=== PATIENT | male | born 1995 | race Caucasian/White ===

== ENCOUNTER 2017-03-26 11:20 | Emergency (ER) | payer MEDICAID, SELFPAY | END 2017-03-26 12:10 | disposition home or self-care (01) | PROVIDERS: Emergency Provider Nurse Practitioner; Visit Provider Nurse Practitioner | DX: R05 Cough (principal) | CPT/HCPCS: 87804; 99201 ==

== ENCOUNTER 2017-04-28 17:54 | Emergency (ER) | payer MEDICAID, SELFPAY ==
[2017-04-28 18:34] VITALS: BP 122/87; PULSE 122; RESP 20; TEMP 37.6; O2SAT 97; BMI 19.7
--- NOTE | 2017-04-28 20:09 | HMH.EDUTC ---
[facility] [place] Clinical Impression: Viral gastroenteritis Disposition: Home, Self-Care Condition on Discharge: Good Instructions: DI for Viral Gastroenteritis -- Adult Additional Instructions: * Monitor Temp. Seek treatment if fever develops. * Follow up immediately for new or worsening symptoms OR no noticeable improvement over the next 48 hours. * Increase fluids. Water, gatorade, powerade, juice OR pedialyte with limited formula/dairy in children. * No food is ok as long as you or your child is drinking. Once ready to eat, start bland. bananas, rice, applesauce, toast * Contagious until no diarrhea, vomiting, fever x 24 hours without medication * Avoid anti-diarrheals unless told otherwise. Best to let the virus run its course. Referrals: Provider,Referral, MD [Primary Care Provider] - (IMMEDIATELY for new or worsening symptoms OR no noticeable improvement over the next 48 hours.) Forms: Work/School Release Time of Disposition: 20:21 Medical Decision Making Vital Signs: 04/28/17 18:34 Temperature 99.6 F Temperature Source Temporal Artery Scan Pulse Rate [Right] 122 H Respiratory Rate 20 Blood Pressure [Right Arm] 122/87 Blood Pressure Mean [Right Arm] 98 Blood Pressure Source [Right Arm] Automatic Cuff Blood Pressure Position [Right Arm] Sitting 02 Sat by Pulse Oximetry 97 Oxygen Delivery Method Room Air - Jose Inquiry Pt receiving controlled substance: No [facility] [place] - General Stated complaint: Vomiting Time Seen by Provider: 04/28/17 20:09 Mode of Arrival: Ambulatory Source of Information: Patient Limitations: No Limitations Description of Symptoms (Recalled from Triage Doc. by RN): N/V/D BEGAN THIS AM HEENT Symptoms (Recalled from RN notes): No Resp Symptoms (Recalled from RN notes): No Skin Symptoms (Recalled from RN notes): No MS Symptoms (Recalled from RN notes): No Functional Status (Recalled from RN notes): N - History of Present Illness Provider Complaint: c/o N/V/D new this morning. Vomited last around 3pm. approx 4-6 times today. Diarrhea 6-10 times. Loose. brown. no treatment today. Tried ham and cheese sandwich for lunch and that is when vomiting started. Has been able to tolerate chicken noodle soup and water this afternoon. Minimal nausea since vomiting subsided. GF w/ same symptoms days ago. pt had to leave work and request excuse. - Related Data Home Medications Medication Instructions Recorded Confirmed No Known Home Medications [No 04/28/17 04/28/17 Known Home Medications] Allergies Allergy/AdvReac Type Severity Reaction Status Date / Time No Known Allergies Allergy Verified 04/28/17 18:38 - Worker's Comp Is this a Worker's Comp case?: No [facility] History I have reviewed the patient's past medical history: Yes (denies PMHx) Other Surgeries: Yes: No Previous Surgery - *Social History Smoking Status: Current every day smoker Tobacco Type: cigarettes Alcohol Intake: never - Psychiatric History Expresses thoughts of harming self/others: None Suicide Plan Description: No Plan ROS Obtained: Yes Systems reviewed as appropriate & no additional complaints - Constitutional Constitutional: Reports as per HPI, Denies body ache, Denies chills, Denies fatigue, Denies fever(s) - ENT Ears, Nose, Mouth, and Throat: Denies otalgia, Denies nasal congestion, Denies nasal discharge, Denies sore throat - Cardiovascular Cardiovascular: Denies chest pain, Denies irregular heart rhythm - Respiratory Respiratory: No cough, No dyspnea - Gastrointestinal Gastrointestingal: Reports: as per HPI. Denies: abdominal pain, coffee ground emesis, vomiting blood, bright red blood in stools, black, tarry stools - Genitourinary Male Genitourinary: Denies difficulty urinating, Denies urinary frequency, Denies urinary hesitancy, Denies urinary urgency, Denies other (urine odor or change in color) - Musculoskeletal Musculoskeletal: Denies back pain - Integumentary/Breasts
--- NOTE | 2017-04-28 20:17 | ED_ITS ---
[facility] [place] Clinical Impression: Viral gastroenteritis Disposition: Home, Self-Care Condition on Discharge: Good Instructions: DI for Viral Gastroenteritis -- Adult Additional Instructions: * Monitor Temp. Seek treatment if fever develops. * Follow up immediately for new or worsening symptoms OR no noticeable improvement over the next 48 hours. * Increase fluids. Water, gatorade, powerade, juice OR pedialyte with limited formula/dairy in children. * No food is ok as long as you or your child is drinking. Once ready to eat, start bland. bananas, rice, applesauce, toast * Contagious until no diarrhea, vomiting, fever x 24 hours without medication * Avoid anti-diarrheals unless told otherwise. Best to let the virus run its course. Referrals: Provider,Referral, MD [Primary Care Provider] - (IMMEDIATELY for new or worsening symptoms OR no noticeable improvement over the next 48 hours.) Forms: Work/School Release Time of Disposition: 20:21 Medical Decision Making Vital Signs: 04/28/17 18:34 Temperature 99.6 F Temperature Source Temporal Artery Scan Pulse Rate [Right] 122 H Respiratory Rate 20 Blood Pressure [Right Arm] 122/87 Blood Pressure Mean [Right Arm] 98 Blood Pressure Source [Right Arm] Automatic Cuff Blood Pressure Position [Right Arm] Sitting 02 Sat by Pulse Oximetry 97 Oxygen Delivery Method Room Air - Jose Inquiry Pt receiving controlled substance: No [facility] [place] - General Stated complaint: Vomiting Time Seen by Provider: 04/28/17 20:09 Mode of Arrival: Ambulatory Source of Information: Patient Limitations: No Limitations Description of Symptoms (Recalled from Triage Doc. by RN): N/V/D BEGAN THIS AM HEENT Symptoms (Recalled from RN notes): No Resp Symptoms (Recalled from RN notes): No Skin Symptoms (Recalled from RN notes): No MS Symptoms (Recalled from RN notes): No Functional Status (Recalled from RN notes): N - History of Present Illness Provider Complaint: c/o N/V/D new this morning. Vomited last around 3pm. approx 4-6 times today. Diarrhea 6-10 times. Loose. brown. no treatment today. Tried ham and cheese sandwich for lunch and that is when vomiting started. Has been able to tolerate chicken noodle soup and water this afternoon. Minimal nausea since vomiting subsided. GF w/ same symptoms days ago. pt had to leave work and request excuse. - Related Data Home Medications Medication Instructions Recorded Confirmed No Known Home Medications [No 04/28/17 04/28/17 Known Home Medications] Allergies Allergy/AdvReac Type Severity Reaction Status Date / Time No Known Allergies Allergy Verified 04/28/17 18:38 - Worker's Comp Is this a Worker's Comp case?: No [facility] History I have reviewed the patient's past medical history: Yes (denies PMHx) Other Surgeries: Yes: No Previous Surgery - *Social History Smoking Status: Current every day smoker Tobacco Type: cigarettes Alcohol Intake: never - Psychiatric History Expresses thoughts of harming self/others: None Suicide Plan Description: No Plan ROS Obtained: Yes Systems reviewed as appropriate & no additional complaints - Constitutional Constitutional: Reports as per HPI, Denies body ache, Denies chills, Denies fatigue, Denies fever(s) - ENT Ears, Nose, Mouth, and Throat: Denies otalgia, Denies nasal congestion, Denies nasal discharge, Denies sore throat
== END 2017-04-28 20:34 | disposition home or self-care (01) ==
PROVIDERS: Emergency Provider Nurse Practitioner Family; Family Provider Nurse Practitioner
DX: A08.4 Viral intestinal infection, unspecified (principal); F17.210 Nicotine dependence, cigarettes, uncomplicated
CPT/HCPCS: 99201

== ENCOUNTER 2022-06-10 14:09 | Emergency (ER) | payer OTHER, SELFPAY ==
[2022-06-10 14:40] VITALS: BP 148/92; PULSE 71; RESP 20; TEMP 36.7; O2SAT 96; BMI 28.1
--- NOTE | 2022-06-10 15:17 | EXP.UTC ---
Discharge Plan Disposition Patient Disposition: Home, Self-Care Condition: Good Referrals Follow up/Referrals: Provider,Referral, [Primary Care Provider] - See instructions Activity Restrictions/Add. Instructions Additional Instructions/Restrictions: Drink extra fluids with and between meals. If you have difficulty drinking, try very small amounts of water or suck on ice chips. ? Avoid fruit juices, as these do not replace minerals and can actually increase diarrhea. ? Children and adults can use sports drinks to replenish electrolytes. Younger children and infants should use products formulated for children, like oral rehydration solutions. ? Eat food in small amounts and let your stomach recover. ? Get lots of rest. You may feel tired or weak. ? No greasy or fried foods for the next 24-48 hours BRAT diet Bananas Rice Apples and [place] ? Make sure to drink plenty of liquids ? Return if needed ? Straight to ER if any life threatening symptoms ? Zofran as prescribed ? Follow up with family doctor in the next 48-72 hours if no improvement or any worsening of symptoms Clinical Impressions Clinical Impression: Nausea vomiting and diarrhea Stand Alone Forms Stand Alone Forms: Work/School Release Instructions Patient Instructions: Nausea and Vomiting-Adult, Diarrhea Discharge ED Provider: Malathi Owens [facility] General Stated complaint: diarrhea Mode of Arrival: Ambulatory Source of Information: Patient Limitations: No Limitations Time Seen by Provider: 06/10/22 15:17 Description of Symptoms (Recalled from Triage Doc. by RN): food poison started with diarrhea, and nausea HEENT Symptoms (Recalled from RN notes): Yes Resp Symptoms (Recalled from RN notes): No Skin Symptoms (Recalled from RN notes): No MS Symptoms (Recalled from RN notes): No Functional Status (Recalled from RN notes): n/a History of Present Illness Provider Complaint: Patient states that he thought he may have got foot poisoning States that he eat something from a restaurant a few days ago and after that he had some N/V/D States that he was suppose to start a new job today but was unable to start due to still having nausea so he came in Related Data Allergies Allergy/AdvReac Type Severity Reaction Status Date / Time No Known Allergies Allergy Verified 06/10/22 14:48 Worker's Comp Is this a Worker's Comp case?: No [facility] Disclaimer: The information contained in this section may have been updated after the patient was seen, as this information can be updated by other users. Social History Smoking Status: Never smoker alcohol intake: never current occupational status: employed Travel in the last 8 weeks: None housing: house ROS Obtained: Yes All systems reviewed & no additional complaints except as documented and Yes Systems reviewed as appropriate & no additional complaints except as documented Constitutional Constitutional: Reports system reviewed and no additional complaints, except as documented and Reports as per HPI Cardiovascular Cardiovascular: Reports system reviewed and no additional complaints, except as documented and Reports as per HPI Respiratory Respiratory: Reports system reviewed and no additional complaints, except as documented and Reports as per HPI Gastrointestinal Gastrointestingal: Reports system reviewed and no additional complaints, except as documented, as per HPI, diarrhea, nausea and vomiting; Denies abdominal pain Physical Exam General General appearance: alert and in no apparent distress ENT ENT exam: Present mucous membranes moist Respiratory Respiratory exam: Present normal lung sounds bilaterally; Absent respiratory distress or wheezes Cardiovascular Cardiovascular exam: Present regular rate, normal rhythm and normal heart sounds Abdominal Exam Abdominal exam: Present sof
[2022-06-10 15:36] VITALS: BP 148/92; PULSE 71; RESP 20; TEMP 36.7; O2SAT 96
== END 2022-06-10 15:36 | disposition home or self-care (01) ==
PROVIDERS: Emergency Provider Nurse Practitioner
DX: R11.2 Nausea with vomiting, unspecified (principal); R19.7 Diarrhea, unspecified
CPT/HCPCS: 99212; G0463

== ENCOUNTER 2022-06-27 14:16 | Emergency (ER) | payer OTHER, SELFPAY ==
[2022-06-27 14:20] VITALS: BP 153/94; PULSE 77; RESP 20; TEMP 37.5; O2SAT 97; BMI 27.9
--- NOTE | 2022-06-27 14:32 | EXP.UTC ---
Discharge Plan Disposition Patient Disposition: Home, Self-Care Condition: Good Prescriptions Prescriptions: New azithromycin [Zithromax] 250 mg tablet 250 mg PO UD DOSE PK Qty: 6 0RF Rx Instructions: Take two (2) tablets today, then one (1) tablet days #2 thru #5 benzonatate [benzonatate] 100 mg capsule 100 mg PO TIDP PRN (Reason: Cough) Qty: 30 0RF prednisone 10 mg tablet 10 mg PO BID 3 Days Qty: 6 0RF ondansetron 4 mg Tablet,Disintegrating 4 mg PO Q8H PRN (Reason: Nausea) Qty: 12 0RF Referrals Follow up/Referrals: Provider,Referral, MD [Primary Care Provider] - See instructions Activity Restrictions/Add. Instructions Additional Instructions/Restrictions: Drink plenty of fluids. Take tylenol or ibuprofen for pain or fever. Take the medications as directed. Follow up with your regular doctor. GO TO THE ER FOR ANY WORSENING SYMPTOMS Clinical Impressions Clinical Impression: Sinusitis Stand Alone Forms Stand Alone Forms: Work/School Release Instructions Patient Instructions: Sinusitis, DI for Sinusitis Discharge ED Provider: Ruben Lackey [facility] General Stated complaint: vomiting Mode of Arrival: Ambulatory Source of Information: Patient Limitations: No Limitations Time Seen by Provider: 06/27/22 14:26 HEENT Symptoms (Recalled from RN notes): Yes Resp Symptoms (Recalled from RN notes): No Skin Symptoms (Recalled from RN notes): No MS Symptoms (Recalled from RN notes): No Functional Status (Recalled from RN notes): n/a History of Present Illness Provider Complaint: For about a week has been spitting up mucus. He states that his mucus is getting more green and thick. He also has a sore throat and sinus congestion. Related Data Previous Rx's Medication Instructions Recorded azithromycin 250 mg tablet 250 mg PO UD DOSE PK #6 tabs 06/27/22 (Zithromax) benzonatate 100 mg capsule 100 mg PO TIDP PRN Cough #30 caps 06/27/22 ondansetron 4 mg disintegrating 4 mg PO Q8H PRN Nausea #12 tabs 06/27/22 tablet prednisone 10 mg tablet 10 mg PO BID 3 days #6 tabs 06/27/22 Allergies Allergy/AdvReac Type Severity Reaction Status Date / Time No Known Allergies Allergy Verified 06/27/22 14:29 Worker's Comp Is this a Worker's Comp case?: No [facility] Disclaimer: The information contained in this section may have been updated after the patient was seen, as this information can be updated by other users. Social History Smoking Status: Never smoker alcohol intake: never current occupational status: employed Travel in the last 8 weeks: None housing: house ROS Obtained: Yes All systems reviewed & no additional complaints except as documented Constitutional Constitutional: Reports poor appetite Eyes Eyes: Reports system reviewed and no additional complaints, except as documented ENT Ears, Nose, Mouth, and Throat: Reports as per HPI Cardiovascular Cardiovascular: Reports system reviewed and no additional complaints, except as documented and Denies chest pain Respiratory Respiratory: Denies shortness of breath, Denies chest congestion, Reports cough, Denies stridor and Denies wheezing Gastrointestinal Gastrointestingal: Reports system reviewed and no additional complaints, except as documented; Denies abdominal pain, diarrhea or vomiting Musculoskeletal Musculoskeletal: Reports system reviewed and no additional complaints, except as documented and Denies arthralgias Integumentary/Breasts Skin/Breast: Reports system reviewed and no additional complaints, except as documented and Denies rash Neurologic Neurologic: Denies paresthesias Allergic/Immunologic Allergic/Immunologic: Denies wheezing Physical Exam General General appearance: alert and in no apparent distress Eye Eye exam: Present normal appearance, PERRL and EOMI ENT ENT exam: Present mucous membranes moist and normal external ear exam Expand
[2022-06-27 15:17] VITALS: BP 153/94; PULSE 77; RESP 20; TEMP 37.5; O2SAT 97
== END 2022-06-27 15:16 | disposition home or self-care (01) ==
PROVIDERS: Emergency Provider Nurse Practitioner Family
DX: J01.90 Acute sinusitis, unspecified (principal); R11.10 Vomiting, unspecified
CPT/HCPCS: 99212; 99214; G0463